=== PATIENT | female | born 1965 | race Caucasian/White ===

== ENCOUNTER 2017-05-24 13:36 | Emergency (ER) | payer BC ==
[2017-05-24] MEDS ORDERED: NO MEDICATIONS (13:43)
== END 2017-05-24 15:15 | disposition home or self-care (01) ==
LOC: SED 13:36
DX: R22.0 Localized swelling, mass and lump, head (principal); T47.0X5A Adverse effect of histamine H2-receptor blockers, initial encounter; F17.210 Nicotine dependence, cigarettes, uncomplicated
CPT/HCPCS: 99283